=== PATIENT | male | born 1985 | race Caucasian/White ===

== ENCOUNTER 2018-12-05 18:57 | Observation (INO) ==
[2018-12-05 19:26] LABS: BASO# 0.02 X1000 (0.0-0.2); BASO% 0.3 % (0.0-0.8); EOS# 0.01 X1000 (0.0-0.7); EOS% 0.2 % (0.0-10.0); HEMATOCRIT 45.3 % (42.0-52.0); HEMOGLOBIN 15.6 g/dL (14.0-18.0); LYMPH# 0.77 X1000 (1.2-3.4); MCH 32.9 PG (27-31); MCHC 34.4 g/dL (33-37); MCV 95.6 FL (81-99); MONO# 1.05 X1000 (0.11-0.59); MONO% 17.7 % (1.7-9.3); MPV 10.1 FL (7.4-10.4); NEUT# 4.08 X1000 (1.4-6.5); NEUT% 68.8 % (42.2-75.2); PLT 255 X1000 (130-400); RBC 4.74 XMIL (4.7-6.1); RDW 13.5 % (11.5-14.5); WBC 5.93 X1000 (4.8-10.8)
[2018-12-05 19:39] LABS: AGAP 19; ALB/GLOB RATIO 1.7; ALKALINE PHOSPHATASE 52 U/L (32-122); BUN 11 mg/dL (8-22); CALCIUM 9.6 mg/dL (8.8-10.2); CHLORIDE 98 mmol/L (98-107); COSMO 274; CREATININE 0.8 mg/dL (0.7-1.2); ESTIMATED GFR > 60; GLUCOSE 117 mg/dL (70-104); GOT 74 U/L (10-34); GPT 103 U/L (10-44); POTASSIUM 3.5 mmol/L (3.5-5.1); SODIUM 137 mmol/L (136-145); TCO2 20 mmol/L (25-35); TOTAL PROTEIN 7.9 g/dL (6.3-8.3)
[2018-12-05] MEDS ORDERED: NS 1,000 ML IV ONE (21:34)
[2018-12-05] MEDS ORDERED: LIBRIUM PO ONE (21:34)
[2018-12-05] MEDS ORDERED: ATIVAN IV ONE (21:34)
[2018-12-05 22:50] LABS: URINE SOURCE CLEAN CATCH
[2018-12-05 22:54] LABS: BILIRUBIN URINE SMALL (NEGATIVE); BLOOD URINE SMALL (NEGATIVE); COLOR YELLOW; GLUCOSE URINE NEGATIVE (NEGATIVE); KETONE URINE 20 mg/dL (NEGATIVE); LEUKOCYTES URINE NEGATIVE (NEGATIVE); NITRITE URINE NEGATIVE (NEGATIVE); PROTEIN URINE 70 mg/dL (NEGATIVE); SP GRAVITY URINE 1.032; TURBIDITY URINE CLEAR (CLEAR); UR EPITHELIAL CELLS <10 /HPF (<10); URINE BACTERIA NEGATIVE /HPF; URINE RBC <10 /HPF (<10); URINE WBC <10 /HPF (<10); UROBILINOGEN URINE 3 mg/dL (NORMAL)
[2018-12-05 23:06] LABS: UR AMPHETAMINES QUAL NONE DETECTED (NONE DETECT); UR BARBITUATES QUAL NONE DETECTED (NONE DETECT); UR BENZODIAZEPIN QUAL NONE DETECTED (NONE DETECT); UR CANNABINOIDS QUAL NONE DETECTED (NONE DETECT); UR COCAINE QUAL NONE DETECTED (NONE DETECT); UR METHADONE QUAL NONE DETECTED (NONE DETECT); UR OPIATES QUAL NONE DETECTED (NONE DETECT); UR OXYCODONE QUAL NONE DETECTED (NONE DETECT); UR PCP QUAL NONE DETECTED (NONE DETECT)
--- NOTE | 2018-12-05 23:27 | PROVIDER DOCUMENTATION ---
This chart was entered by Nilda Chaudhry Scribe, acting as scribe for Aida Ramirez MD. HPI-General Adult - General Chief Complaint: Alcohol Withdrawal Stated Complaint: WITHDRAWLS FROM ALCOHOL Time Seen by Provider: 12/05/18 21:30 Source: patient Allergies/Adverse Reactions: Patient Allergies Allergy/AdvReac Type Severity Reaction Status Date / Time No Known Allergies Allergy Verified 12/05/18 21:53 - History of Present Illness -Gen Adult Nature of Presenting Problems: Pt is 33/m presenting to ED w/ alcohol withdrawals. He sts that he stopped drinking on Saturday at 5am. He was an everyday drinker for 15 years, with drinking around a gallon of vodka every other day. He has quit "cold turkey". He reports having shakiness and hallucinations. pt has hx of substance abuse, with cocaine 10 yrs prior and more recently adderall. no chest pain no headahce , no nausea or vomiting Location of Pain/Injury: reports: other (detox from alcohol) Quality of Pain: reports: none Severity: reports: moderate Onset/Duration: reports: 3 days ago Timing: reports: still present Associated Symptoms: reports: denies symptoms, other (shaky w/ hallucinations). denies: diarrhea, vomiting Similar Symptoms Previously?: No Recently seen or treated by another doctor?: No Review of Systems - Adult - REVIEW OF SYSTEMS - ADULT Constitutional: reports: other (shaky). denies: chills, fever Eyes: reports: no symptoms reported Ears, Nose, Mouth & Throat: reports: no symptoms reported Cardiovascular: reports: other (tachycardia, 138 bpm) Respiratory: reports: no symptoms reported. denies: cough, shortness of breath Gastrointestinal: reports: no symptoms reported. denies: abdominal pain, constipation, nausea, vomiting Genitourinary: reports: no symptoms reported Musculoskeletal: reports: see HPI Integumentary: reports: no symptoms reported Neurological: denies: dizziness/vertigo, headache/migraines Psychiatric: reports: no symptoms reported, alcohol/drug dependence (current detox). denies: panic attacks Endocrine: reports: no symptoms reported Hematologic/Lymphatic: reports: no symptoms reported Allergic/Immunologic: reports: no symptoms reported All Other Systems: Reviewed and Negative Past History - Adult - PAST MEDICAL HISTORY-ADULT Review of Records: reports: Old Records Reviewed, Nursing Assessment Review, Medications Reviewed, Social history reviewed & non-contributory. - SOCIAL HISTORY Smoking: denies, non-smoker Substance Use: none presently/history of abuse Alcohol Use Frequency: every day Living Situation: family Physical Exam-General - PHYSICAL EXAM-ADULT Initial Vital Signs Reviewed: Yes - CONSTITUTIONAL General Appearance: alert, moderate distress, other (shaky and uneasy) - EYES Eyes: PERRL/EOMI, pink conjunctivae - HEAD, EARS, NOSE, MOUTH & THROAT HENMT: normocephalic/atraumatic, moist mucous membranes, normal ENT inspection, pharynx normal - NECK Neck: non-tender, full range of motion - RESPIRATORY Respiratory: chest non-tender, lungs clear, normal breath sounds, no respiratory distress - CARDIOVASCULAR Cardiovascular: normal peripheral pulses, regular rate, rhythm, no edema - GASTROINTESTINAL (ABDOMEN) Abdominal Exam: non tender, soft - LYMPHATIC Lymphatic: no adenopathy - MUSCULOSKELETAL Back Exam: normal inspection, no vertebral tenderness Extremity: normal range of motion, non-tender, normal gait, normal inspection - SKIN Integumentary: normal color, normal turgor, warm/dry, diaphoresis - NEUROLOGIC Neurologic: grossly normal, no motor/sensory deficits, other (tremulous) - PSYCHIATRIC Psych/Mental Status: normal mood/affect, normal thought content, normal thought process, oriented x 3, other (pt is shaky and nervous during exam) Progress - PLAN OF CARE/RESULTS Progress/Plan/Lab Results: Vital Signs - 8 hr 12/05/18 19:06 12/05/18 21:33 Temperature 98.5 F 98.5 F Pulse Rate 138 H 120 H Respiratory Rate 20 20 Blood Pressure 144/90 140/90 O2 Sat by Pulse Oximetry 98 Laboratory Results - last 24 hr 12/05/18 12/05/18 12/05/18 19:14 19:14 19:14 WBC 5.93 RBC 4.74 Hgb 15.6 Hct 45.3 MCV 95.6 MCH 32.9 H MCHC 34.4 RDW Std Deviation 13.5 Plt Count 255 MPV 10.1 Immature Gran % (Auto) 0.0 Neut % (Auto) 68.8 Lymph % (Auto) 13.0 L Tate % (Auto) 17.7 H Eos % (Auto) 0.2 Baso % (Auto) 0.3 Immature Gran # (Auto) 0.00 Neut # (Auto) 4.08 Lymph # (Auto) 0.77 L Tate # (Auto) 1.05 H Eos # (Auto) 0.01 Baso # (Auto) 0.02 Sodium 137 Potassium 3.5 Chloride 98 Carbon Dioxide 20 L Anion Gap 19 BUN 11 Creatinine 0.8 Estimated GFR/1.73 m2 > 60 BUN/Creatinine Ratio 14 Glucose 117 H Calculated Osmolality 274 Calcium 9.6 Total Bilirubin 1.00 AST 74 H ALT 103 H Alkaline Phosphatase 52 Total Protein 7.9 Albumin 5.0 Globulin 2.9 Albumin/Globulin Ratio 1.7 Plasma/Serum Ethyl Alc Orders Category Date Time Status IV Insertion ORDERED Care 12/05/18 21:34 Active ALCOHOL BLOOD Stat Lab 12/05/18 19:14 Completed CBC WITH DIFF [HEME] Stat Lab 12/05/18 19:14 Completed COMPREHENSIVE METABOLIC PANEL [CHEM] Stat Lab 12/05/18 19:14 Completed URINALYSIS W/POSS RFLX CULT [URINALYSIS] Stat Lab 12/05/18 21:34 Uncollected URINE DRUG SCREEN Stat Lab 12/05/18 21:34 Uncollected 0.9% Sodium Chloride Inj [Ns] 1,000 ml Med 12/05/18 21:34 Active IV 999 mls/hr Chlordiazepoxide [Librium] Med 12/05/18 21:34 Discontinued 10 mg PO NOW ONE Lorazepam [Ativan] Med 12/05/18 21:34 Discontinued 1 mg IV NOW ONE alcohol withdrawl with brandt DT's. Will treat and will further evaluate for ingestants and other causes of symtpoms Result Diagrams: 12/05/18 19:14 12/05/18 19:14 - REASSESSMENT Reassessment #1 Status: improving (tachycardia and hypertension improving some but contines to have some hallucinations and tremors. Will likely need admission for DT's. Discussed case with Dr. Rios, Hospitalist who will see and admit pt.) Departure - Departure Date of Disposition Decision: 12/05/18 Time of Disposition Decision: 23:22 DIAGNOSIS: Delirium tremens, Alcohol abuse Disposition: ADMITTED INPATIENT 09 Certified Medical Emergency: Emergent Condition: Fair Referrals and Follow-Ups: None,PCP [Primary Care Provider] - - Critical Care Note This patient required my direct & personal management of CC.: No Attestation - Physician/ WESTLEY Attestation Patient care was provided by Advanced Practice Provider:: No The physician spent face to face time with patient:: Yes Advanced Practice Provider documentation review:: Supervising physician onsite and consulted in the evaluation and care of this patient. The physician did have a face to face encounter with the patient. This chart was documented by the indicated scribe, (Nilda Chaudhry, [employer]) and accurately reflects the services I performed and decisions made by me, Aida Ramirez MD, as attested by the provider's signature.
[2018-12-06] MEDS ORDERED: ATIVAN IV ONE (01:02)
[2018-12-06] MEDS ORDERED: M.V.I.-12 10 ML, FOLIC ACID 1 MG, MAGNESIUM SULFATE 1 GM, THIAMINE 100 MG in NS 1,000 ML IV ONE (01:13)
[2018-12-06 01:26] LABS: INR 0.97; PROTIME 13.6 Seconds (11.0-16.0)
[2018-12-06 01:27] LABS: PTT 31.4 Seconds (22.3-41.8)
[2018-12-06 01:37] LABS: MAGNESIUM 1.7 mg/dL (1.5-2.7); PHOSPHORUS 3.2 mg/dL (2.7-4.5)
[2018-12-06] MEDS ORDERED: ZOFRAN IV PRN (02:21)
[2018-12-06] MEDS: NS 1,000 ML IV SCH ×2 (02:27→11:17)
[2018-12-06] MEDS: PROTONIX IV SCH (02:39)
[2018-12-06] MEDS ORDERED: ATIVAN IV PRN (03:00)
[2018-12-06] MEDS: LIBRIUM PO SCH ×4 (04:10→21:38)
[2018-12-06 06:23] LABS: BASO# 0.03 X1000 (0.0-0.2); BASO% 0.6 % (0.0-0.8); EOS# 0.03 X1000 (0.0-0.7); EOS% 0.6 % (0.0-10.0); HEMATOCRIT 42.4 % (42.0-52.0); HEMOGLOBIN 14.2 g/dL (14.0-18.0); LYMPH% 24.1 % (20.5-51.1); MCH 32.6 PG (27-31); MCHC 33.5 g/dL (33-37); MCV 97.5 FL (81-99); MONO# 1.28 X1000 (0.11-0.59); MONO% 23.7 % (1.7-9.3); NEUT# 2.76 X1000 (1.4-6.5); PLT 216 X1000 (130-400); RBC 4.35 XMIL (4.7-6.1); RDW 13.6 % (11.5-14.5)
[2018-12-06 06:56] LABS: AGAP 15; BUN 9 mg/dL (8-22); CALCIUM 8.7 mg/dL (8.8-10.2); CHLORIDE 103 mmol/L (98-107); COSMO 280; CREATININE 0.7 mg/dL (0.7-1.2); ESTIMATED GFR > 60; GLUCOSE 100 mg/dL (70-104); PHOSPHORUS 3.4 mg/dL (2.7-4.5); POTASSIUM 3.4 mmol/L (3.5-5.1); SODIUM 141 mmol/L (136-145); TCO2 23 mmol/L (25-35)
[2018-12-06 07:25] LABS: BANDS 6 % (0-1); LYMPHS 10 % (21-51); MONO 20 % (1-9); SEGS 64 % (42-75)
[2018-12-06] MEDS ORDERED: VALIUM IV ONE (08:46)
[2018-12-06] MEDS ORDERED: VALIUM PO ONE (08:56)
[2018-12-06] MEDS ORDERED: VALIUM ONE (09:01)
--- NOTE | 2018-12-06 10:26 | HISTORY AND PHYSICAL ---
DATE AND TIME: 12/06/2018 at 0100. CHIEF COMPLAINT: Alcohol withdrawal. HISTORY OF PRESENT ILLNESS: Mr. Winston is a 33-year-old male with a past medical history of alcohol abuse, fatty liver disease, gastroenteritis, and a reported history of one seizure that occurred during a syncopal episode while he was having blood work drawn. The patient denies any seizure episodes since that time and this occurred when he was an adolescent at approximately age 11. The patient states that he normally drinks a half of a gallon of vodka a day and has done so for the past 3-4 months. Prior to this, he did drink about approximately a pint of vodka a day. When asked if there was a reason for the patient's increase in his alcohol consumption over the past 3-4 months, he states he had been out of work and had been under stress and had problems with depression. The patient has had a history of having problems with depression in the past. He denies any previous history of self harm or attempted suicide. He denies any previous hospitalization for psychiatric illness. He currently at this time denies any suicidal thoughts or ideation. The patient states that he decided to quit drinking and did this "cold turkey" on December 02. The patient states that he did have some nausea and several episodes of vomiting though has not had any vomiting episodes since then. He reported that he did have 1 episode of vomiting where his emesis did have some bright red blood noted though this was only a small amount and has not occurred since that time. He currently at this time denies any hematochezia or melena. His mother at bedside has been helping take care of him over the past few days and did report that he has had symptoms of anxiousness, agitation, being shaky all over and has had some transient confusion with visual and auditory hallucinations. The patient states that he has had command hallucinations that have been telling him to do things though he denies any auditory hallucinations that are telling him to harm himself or others. The patient did present to the ER today due to his alcohol withdrawal symptoms and that he does want to stop drinking. At this time, other than his previously mentioned symptoms, he is denying any other symptoms. He denies any headache, dizziness, chest pain, shortness of breath or cough. He denies any abdominal pain. He did report some occasional dysuria. He denies any pain, numbness, tingling or swelling in extremities. Upon evaluation in the ER, the patient as previously mentioned was noted to be anxious, shaky all over. He is slightly tachycardic with initially a heart rate in the high 130s though since being given some fluids as well as medications of Ativan and Librium, his heart rate and his shakiness have improved. Laboratory and diagnostic studies were pretty unremarkable and the patient does not have any electrolyte abnormalities at this time. He did have some slight elevation of his AST and ALT. His urine drug screen was negative and his serum alcohol was 0. At this time, the patient will be admitted for further treatment and evaluation of his acute alcohol withdrawal. REVIEW OF SYSTEMS: A 14 point review of systems was conducted with the patient and all were negative except for pertinent positives as mentioned in the above HPI. PAST MEDICAL HISTORY: 1. History of reported seizure as an adolescent at approximately age 11 which occurred during a syncopal episode while he was having his blood drawn. The patient denies any seizure like activity or episodes since that time. 2. Fatty liver disease. 3. Gastroenteritis. 4. Alcohol abuse. PAST SURGICAL HISTORY: 1. Wells teeth removal. 2. Ingrown toenail removal. SOCIAL HISTORY: The patient does abuse alcohol and reports that he drinks approximately a half of a gallon of vodka a day and has done so over the past 3-4 months. The patient states that prior to this, he drank approximately a pint of vodka a day and has been doing this for a period of approximately 3 years. The patient did not report any known history of tobacco or illicit drug use though according to the ER note, he did admittedly report to a previous history of cocaine abuse and Adderall abuse in the past. Though, upon my questioning, the patient did not report this. FAMILY HISTORY: The patient's mother does have a history of supraventricular tachycardia, hypertension and diabetes mellitus. She also does have a history of alcohol abuse in the past and is a recovered alcoholic. The patient's father does have a history of diabetes mellitus and has had a CABG. ALLERGIES: The patient reports no known allergies. HOME MEDICATIONS: Protonix 40 mg p.o. daily. DIAGNOSTIC STUDIES: White blood cell count 5,930, hemoglobin 15.6, hematocrit 45.3, platelet count is 255,000. PT 13.6, INR 0.97, PTT 31.4. Sodium 137, potassium 3.5, chloride 98 , serum bicarbonate is 20. BUN 11, creatinine 0.8, glucose 117, calcium 9.6, magnesium 1.7, phosphorus 3.2. Total bilirubin of 1. AST 74, ALT 103, alkaline phosphatase 52. Serum alcohol is 0. Urine drug screen is negative. Urinalysis obtained via clean catch was positive for protein, stones, small amount of blood and bilirubin. It was negative for glucose, nitrites, leukocytes, white blood cells or bacteria. EKG showed sinus tachycardia at a rate of 121 with a QTc of 443. PHYSICAL EXAMINATION: VITAL SIGNS: Temperature 98.5 degrees, heart rate 112, respirations 22, blood pressure is 152/101, oxygen saturation is 97% on room air. GENERAL: Mr. Winston is a 33-year-old male who is resting in the ER stretcher although he was visibly anxious and shaky upon my examination. He did not appear to be in any distress. He is alert and oriented to person, place, time and situation. He is responding, following commands and answering questions appropriately. HEENT: Head is atraumatic, normocephalic. Pupils are equal, round, reactive to light, were 3 mm bilaterally and brisk. Oral mucosa is moist. Oropharynx is clear. NECK: Supple. Trachea midline. CARDIOVASCULAR: Patient has S1, S2. No murmurs, gallops, rubs appreciated with a tachycardic rate that is regular. PULMONARY: Patient has symmetrical chest expansion bilaterally. Lung sounds are clear to auscultation in bilateral full bruce. ABDOMEN: Soft, nontender, did not appear to be distended though the patient does have a slightly protuberant abdomen noted. Bowel sounds were present in all 4 quadrants, were normoactive. EXTREMITIES: No cyanosis, clubbing or edema noted. Pulse, motor and sensory are intact in all extremities. Radial pulses and pedal pulses were 2+ bilaterally. Capillary refill is less than 3. INTEGUMENTARY: The patient's skin is pink,warm and dry. NEUROLOGICAL: Patient is alert and oriented to person, place, time and situation. He is answering and following commands appropriately. Though the patient is anxious and shaky upon my examination, there does not appear to be any focal neurological deficits noted at this time. ASSESSMENT AND PLAN: 1. Alcohol withdrawal. 2. Delirium tremens. 3. Alcohol dependence. The patient will be placed in ICU for close monitoring of his alcohol withdrawal and delirium tremens. We have placed him on Librium 25 mg p.o. q.6 hours. We will also provide Ativan 1 mg IV q.2 hours p.r.n. for agitation and alcohol withdrawal. We will hydrate the patient with normal saline at 125 mL per hour. He has received 1 banana bag in the ER. We will continue with the banana bag daily. We will closely monitor his electrolytes. We will repeat a BMP , magnesium and phosphorus later on this morning. We have placed orders for q.15 minute vital signs with frequent neuro checks. He will be on aspiration and seizure precautions. We will do strict intake and outputs. At this time, the patient is awake and alert. We will continue with a regular diet. DVT prophylaxis will be provided with SCDs. GI prophylaxis will be provided Protonix 40 mg IV q.24 hours. Further orders and recommendations pending hospital course, diagnostic studies and physician evaluation. Critical care time with this patient was approximately 45 minutes. Dictated by HOLLAND Valles for Jaime Rios MD I have performed a face to face diagnostic evaluation. Labs/Xrays- reviewed. Exam- Neuro- agitation A/P- Delirium Tremens- Admit, supportive treatment, IV ativan Dr. Rios cc: Jaime Rios MD [facility]
--- NOTE | 2018-12-06 16:00 | PROGRESS NOTE ---
DATE: 12/06/2018 SUBJECTIVE: This morning Mr. Winston referred to be doing a lot a lot better, shaking had improved however he continued to have hallucination. OBJECTIVE: Vitals: Blood pressure was 146/102, pulse of 97, respiration is 22, temperature is 98.8 degrees. General: Mr. Winston 33-year-old male BMI of 35.3. He was in bed was not in any distress. Mucosa was pink and moist. Anicteric, acyanotic. Neck: Supple. Chest: Good air entry bilateral. There was no crepitations, no rhonchi. Cardiovascular: Regular rate and rhythm. No murmurs, no rubs, no gallops. Abdomen: Soft, nontender. Extremities: No pedal edema. 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 He still had baseline tremors and shaking. Patient was telling me that there were bricks under his feet. ASSESSMENT: 1. Severe alcohol withdrawal. 2. Alcohol dependent. 3. Obesity with body mass index of 35.3. 4. History of fatty liver disease. I reviewed patient medications, will continue with the Librium 25 p.o. q.6, Ativan 1 mg q.2 p.r.n., multivitamin supplements and normal saline at 125 mL/h. We did order 1 time dose of Valium in the ER. cc: Yao Emerson MD
[2018-12-07] MEDS: LIBRIUM PO SCH ×3 (03:42→22:04)
[2018-12-07] MEDS: PROTONIX IV SCH (03:42)
[2018-12-07] MEDS: SODIUM CHLORIDE 0.9% INJ SCH (03:44)
[2018-12-07 05:54] LABS: BASO# 0.02 X1000 (0.0-0.2); BASO% 0.5 % (0.0-0.8); EOS# 0.11 X1000 (0.0-0.7); HEMATOCRIT 42.3 % (42.0-52.0); HEMOGLOBIN 14.2 g/dL (14.0-18.0); LYMPH# 0.86 X1000 (1.2-3.4); LYMPH% 23.2 % (20.5-51.1); MCH 33.1 PG (27-31); MCHC 33.6 g/dL (33-37); MCV 98.6 FL (81-99); MONO# 0.86 X1000 (0.11-0.59); MONO% 23.2 % (1.7-9.3); NEUT# 1.85 X1000 (1.4-6.5); NEUT% 50.1 % (42.2-75.2); PLT 185 X1000 (130-400); RBC 4.29 XMIL (4.7-6.1); RDW 13.6 % (11.5-14.5)
[2018-12-07 06:18] LABS: AGAP 13; ALB/GLOB RATIO 1.7; ALBUMIN 4.3 g/dL (3.5-5.0); ALKALINE PHOSPHATASE 43 U/L (32-122); BUN 5 mg/dL (8-22); CALCIUM 8.7 mg/dL (8.8-10.2); CHLORIDE 102 mmol/L (98-107); COSMO 277; CREATININE 0.6 mg/dL (0.7-1.2); ESTIMATED GFR > 60; GLUCOSE 98 mg/dL (70-104); GOT 77 U/L (10-34); GPT 109 U/L (10-44); MAGNESIUM 2.1 mg/dL (1.5-2.7); PHOSPHORUS 2.8 mg/dL (2.7-4.5); POTASSIUM 3.6 mmol/L (3.5-5.1); SODIUM 140 mmol/L (136-145); TCO2 25 mmol/L (25-35); TOTAL BILIRUBIN 1.03 mg/dL (0.20-1.00); TOTAL PROTEIN 6.8 g/dL (6.3-8.3)
[2018-12-07 06:43] LABS: EOS 2 % (1-10); LYMPHS 25 % (21-51); MONO 18 % (1-9); SEGS 55 % (42-75)
[2018-12-07] MEDS: M.V.I.-12 10 ML, FOLIC ACID 1 MG, MAGNESIUM SULFATE 1 GM, THIAMINE 100 MG in NS 1,000 ML IV SCH (09:30)
[2018-12-07] MEDS: REVIA PO SCH (11:30)
--- NOTE | 2018-12-07 11:45 | PROGRESS NOTE ---
DATE: 12/07/2018 SUBJECTIVE: This morning Mr. Winston refers to be doing a lot better. According to him, the hallucinations, the voices have all receded and he does not feel anymore breaks on his feet. OBJECTIVE: Vital signs: Blood pressure is 140/97, pulse is 84, respiration is 18, temperature 97.9 degrees. General: Mr. Winston is a 33-year-old male, morbidly obese. He was in bed. No distress. HEENT: Mucosa is pink and moist. Anicteric. Acyanotic. Neck: Supple. Chest: Good air entry bilaterally. There were no crepitations and no rhonchi. Cardiovascular: Regular rate and rhythm. No murmurs. No rubs. No gallops. Abdomen: Soft, nontender. Bowel sounds present. Extremities: No pedal edema. DAY GUARD: Patient is awake, alert , and oriented. There is no focal neurological deficit. Psychiatric: The patient has less hallucinations today. He does have very minimal tremors. ASSESSMENT: 1. Severe alcohol withdrawal. The patient is now a lot better. We are going to continue with the benzodiazepine therapy of weaning him off. 2. Alcohol dependence. The patient was taking about a whole bottle of vodka on daily basis for the last couple weeks and he is willing to stop. We are going to start him on baclofen and naltrexone and he has been advised to follow up with either [facility] or the outpatient alcohol management team in [place]. 3. Obesity with a body mass index of 35. Weight loss has been advised. 4. History of fatty liver disease, noted. Likely related to alcohol and obesity. PLAN: So in general I think Mr. Winston is doing a lot better. Still has some residual hallucination, but on the whole, I think he has improved clinically. We are going to continue with his current care. I am weaning him off on the dose of the Librium. We have started him on naltrexone and baclofen for alcohol craving and hopefully we can discharge Mr. Winston tomorrow. cc: Yao Emerson MD [facility]
[2018-12-07] MEDS ORDERED: LIORESAL PO SCH (13:00)
[2018-12-07] MEDS: LIORESAL PO SCH ×2 (15:16→22:04)
[2018-12-08] MEDS: SODIUM CHLORIDE 0.9% INJ SCH ×2 (03:07→09:00)
[2018-12-08] MEDS: PROTONIX IV SCH (03:07)
--- NOTE | 2018-12-08 08:22 | EKG Report ---
Test Performed on : 12/06/2018 01:24:09 AM Test Reason : Alcohol Withrawal Blood Pressure : / mmHG Vent. Rate : 121 BPM Atrial Rate : 121 BPM P-R Int : 152 ms QRS Dur : 080 ms QT Int : 312 ms P-R-T Axes : 018 -02 021 degrees QTc Int : 443 ms Sinus tachycardia. Nonspecific ST and T wave abnormality Abnormal ECG No previous ECGs available Unconfirmed Result
[2018-12-08] MEDS: M.V.I.-12 10 ML, FOLIC ACID 1 MG, MAGNESIUM SULFATE 1 GM, THIAMINE 100 MG in NS 1,000 ML IV SCH (09:01)
[2018-12-08] MEDS: REVIA PO SCH (09:03)
[2018-12-08] MEDS: LIORESAL PO SCH (09:04)
[2018-12-08] MEDS: LIBRIUM PO SCH (09:04)
[2018-12-08 11:55] VITALS: BP 125/88
--- NOTE | 2018-12-09 04:16 | DISCHARGE SUMMARY ---
ADMISSION DATE: 12/05/2018 DISCHARGE DATE: 12/08/2018 DISPOSITION: Home. FOLLOWUP: Will be from [facility] [place]. ADMISSION DIAGNOSES: 1. Alcohol withdrawal. 2. Delirium tremens. 3. Alcohol dependence. DIAGNOSES AT THE TIME OF DISCHARGE: 1. Severe alcohol withdrawal. 2. Alcohol dependence. 3. Obesity with body mass index of 35.3. 4. History of fatty liver disease likely related to alcohol and obesity. DISCHARGE MEDICATIONS: 1. Pantoprazole 40 mg daily. 2. Librium 10 mg p.o. q.12. 3. Multivitamins. 4. Baclofen 10 mg 3 times per day. 5. Naltrexone 50 mg p.o. daily. PRESENTING COMPLAINT: Alcohol withdrawal. HISTORY OF PRESENTING COMPLAINT: Mr. Winston is a 33-year-old male with an extensive history of alcohol abuse. According to him, lately, he has been drinking about a whole bottle, of about a liter of vodka, on a daily basis, that he just decided that he wanted to quit cold turkey 3 days prior to admission. On admission, he was very anxious, agitated, shaky all over, visual and auditory hallucinating. He was subsequently admitted to the ICU for delirium tremens. HOSPITAL COURSE: The patient was in close one-to-one observation in the ICU, was started on withdrawal protocol, which he responded very well. The following day, he was transitioned to medical floor. He continued to improve. All the shaking and hallucinations all disappeared. He was started on medication for cravings, and he was given information about outpatient follow up. This morning, he refers to be doing a lot better. He is not having any more symptoms. He feels great. He thinks he will be okay going home. DISCHARGE VITALS: Blood pressure is 135/88, pulse is 78, respirations is 12, temperature is 97.5 degrees. All the discharge instructions have been discussed with him. He is supposed to follow up with the [facility] program in [place] or get an outpatient alcohol cessation program to join. All the discharge instructions were discussed with him, and he voiced understanding. Specifically, we stressed the utmost importance of alcohol cessation. TIME SPENT FOR DISCHARGE: 35 minutes. cc: Yao Emerson MD
== END 2018-12-08 12:35 | disposition home or self-care (01) ==
LOC: ED 18:57 → EDIPHOLD 18:58 → SUATTDRO 18:58 → INTOOBSV 18:58 → ICU 12-06 10:04 → 3S 12-07 04:40 → 4N 12-07 14:11
PROVIDERS: ATTEND Internal Medicine
CPT/HCPCS: 80048; 80053; 80101; 80301; 80307; 80320; 80324; 80345; 80346; 80353; 80358; 80361; 80365; 81001; 82055; 83735; 83992; 84100; 85025; 85610; 85730; 93005; 94760; 94799; 96365; 96366; 96375; 96376; 99285; A9270; C9113; G0431; G0434; G0479; G0480; G6040; J2060; J3411; J3475; J7030; S0164